=== PATIENT | female | born 1995 | race Caucasian/White ===

== ENCOUNTER 2017-11-30 20:09 | Emergency (ER) | payer MEDICAID ==
[2017-11-30] MEDS ORDERED: ACETAMINOPHEN 325 MG TABLET PO ONE (20:23)
[2017-11-30] MEDS ORDERED: RINGERS SOLUTION,LACTATED 1,000 ML IV ONE (20:23)
--- NOTE | 2017-11-30 20:26 | ER Document Report ---
ED Medical Screen (RME) - General Chief Complaint: Dizziness Stated Complaint: DIZZINESS Time Seen by Provider: 11/30/17 20:18 Notes: RAPID MEDICAL EVALUATION DISCLOSURE I have seen this patient as part of a Rapid Medical Evaluation and, if applicable, placed any initially appropriate orders. The patient will be seen and fully evaluated, including a full history and physical exam, by a provider ( in Main ED or Fast Track) when a room becomes available. 22-year-old female here with complaints of body aches sore throat chest pain palpitations and fever that started earlier today. The symptoms started with some chest pain while she was at work but no shortness of breath cough congestion. She then started to experience some sore throat that felt like "my throat was closing up on me". After that, she started to have body aches and fever. She has not taken anything for the symptoms. She does not know of any specific sick contacts. Immunizations up-to-date. She has not had any dysuria hematuria frequency hesitancy abdominal pain. EXAM Minimal oropharyngeal erythema no tonsillar swelling or exudates Moderately tachycardic high 130s CTAB No abdominal TTP TRAVEL OUTSIDE OF THE [place] IN LAST 30 DAYS: No - Related Data Allergies/Adverse Reactions: No Known Allergies Allergy (Unverified 09/24/15 21:05) Physical Exam - Vital signs Vitals: Temp Pulse Resp BP Pulse Ox 100.6 F H 123 H 20 130/71 H 98 11/30/17 20:15 11/30/17 20:15 11/30/17 20:15 11/30/17 20:15 11/30/17 20:15 Course - Vital Signs Vital signs: Temp Pulse Resp BP Pulse Ox 100.6 F H 123 H 20 130/71 H 98 11/30/17 20:15 11/30/17 20:15 11/30/17 20:15 11/30/17 20:15 11/30/17 20:15
[2017-11-30 21:07] LABS: ABSOLUTE LYMPHOCYTES (AUTO) 1.2 10^3/uL (0.5-4.7); ABSOLUTE MONOCYTES (AUTO) 0.8 10^3/uL (0.1-1.4); BASOPHILS % (AUTO) 0.1 % (0-2); EOSINOPHILS % (AUTO) 0.2 % (0-6); HEMATOCRIT 37.2 % (36.0-47.0); HEMOGLOBIN 12.5 g/dL (12.0-15.5); LYMPHOCYTES % (AUTO) 7.3 % (13-45); MEAN CORPUSCULAR HGB CONC 33.7 g/dL (32.0-36.0); MEAN CORPUSCULAR VOLUME 86 fl (80-97); MONOCYTES % (AUTO) 4.9 % (3-13); PLATELET COUNT 251 10^3/uL (150-450); RED BLOOD COUNT 4.32 10^6/uL (3.72-5.28); RED CELL DISTRIBUTION WIDTH 13.1 % (11.5-14.0); SEGMENTED NEUTROPHILS % (AUTO) 87.5 % (42-78); TOTAL CELLS COUNTED % (AUTO) 100 %
[2017-11-30 21:10] LABS: APPEARANCE,URINE SLIGHTLY-CLOUDY; BILIRUBIN,URINE NEGATIVE (NEGATIVE); COLOR,URINE YELLOW; GLUCOSE, URINE NEGATIVE (NEGATIVE); KETONES,URINE NEGATIVE (NEGATIVE); LEUKOCYTE ESTERASE,URINE NEGATIVE (NEGATIVE); NITRITE,URINE NEGATIVE (NEGATIVE); PROTEIN,URINE NEGATIVE (NEGATIVE); URINE SPECIFIC GRAVITY 1.019; UROBILINOGEN,URINE NEGATIVE mg/dL (<2.0)
--- NOTE | 2017-11-30 21:23 | RADIOLOGY REPORT (SQ) ---
EXAM DESCRIPTION: CHEST 2 VIEWS COMPLETED DATE/TIME: 11/30/2017 9:02 pm REASON FOR STUDY: CP fever; eval pneumonia COMPARISON: None. EXAM PARAMETERS: NUMBER OF VIEWS: two views TECHNIQUE: Digital Frontal and Lateral radiographic views of the chest acquired. RADIATION DOSE: NA LIMITATIONS: none FINDINGS: LUNGS AND PLEURA: No opacities, masses or pneumothorax. No pleural effusion. MEDIASTINUM AND HILAR STRUCTURES: No masses or contour abnormalities. HEART AND VASCULAR STRUCTURES: Heart normal size. No evidence for failure. BONES: No acute findings. HARDWARE: None in the chest. OTHER: No other significant finding. IMPRESSION: NO ACUTE RADIOGRAPHIC FINDING IN THE CHEST. TECHNICAL DOCUMENTATION: JOB ID: [id number] [place]-72 2010 [employer]- All Rights Reserved Reading location - IP/workstation name: [email or web address]
[2017-11-30 21:24] LABS: A TYPE INFLUENZA AG NEGATIVE (NEGATIVE); ALANINE AMINOTRANSFERASE 22 U/L (9-52); ALBUMIN 5.1 g/dL (3.5-5.0); ALKALINE PHOSPHATASE 70 U/L (38-126); ANION GAP 17 (5-19); ASPARTATE AMINO TRANSFERASE 21 U/L (14-36); B INFLUENZA AG NEGATIVE (NEGATIVE); BILIRUBIN,DIRECT 0.3 mg/dL (0.0-0.4); BILIRUBIN,TOTAL 0.6 mg/dL (0.2-1.3); BLOOD UREA NITROGEN 11 mg/dL (7-20); CALCIUM 10.3 mg/dL (8.4-10.2); CARBON DIOXIDE 25 mmol/L (22-30); CHLORIDE 98 mmol/L (98-107); GLUCOSE 106 mg/dL (75-110); LIPASE 92.6 U/L (23-300); POTASSIUM 3.9 mmol/L (3.6-5.0); SODIUM 140.4 mmol/L (137-145); TOTAL PROTEIN 8.4 g/dL (6.3-8.2)
--- NOTE | 2017-11-30 21:26 | ER Document Report ---
ED General - General Chief Complaint: Dizziness Stated Complaint: DIZZINESS Time Seen by Provider: 11/30/17 20:18 TRAVEL OUTSIDE OF THE [place] IN LAST 30 DAYS: No - HPI Notes: 22-year-old female who presents with fever and not feeling well. Patient describes gradual onset throughout the day of body aches, back pain, mild headache, clinical sore throat. Gradual onset, nonradiating. No other modifying factors, no other associated symptoms, no other provocative or palliative factors. She has had no recent travel, no tick bites but did find a "tick in her bed". No rashes. No camping. No international travel. No diarrhea, no vomiting. No photophobia. No neck pain. No neck stiffness. No other modifying factors, no other associated symptoms, no other provocative or palliative factors. No cough - Related Data Allergies/Adverse Reactions: No Known Allergies Allergy (Unverified 09/24/15 21:05) Past Medical History - Social History Smoking Status: Never Smoker Chew tobacco use (# tins/day): No Frequency of alcohol use: None Drug Abuse: None Family History: Reviewed & Not Pertinent Patient has suicidal ideation: No Patient has homicidal ideation: No - Medical History Medical History: Negative Renal/ Medical History: Denies: Hx Peritoneal Dialysis Past Surgical History: Reports: Hx Orthopedic Surgery - right shoulder Review of Systems - Review of Systems Notes: Review of systems as in the history of present illness, otherwise negative. Physical Exam - Vital signs Vitals: Temp Pulse Resp BP Pulse Ox 100.6 F H 123 H 20 130/71 H 98 11/30/17 20:15 11/30/17 20:15 11/30/17 20:15 11/30/17 20:15 11/30/17 20:15 - Notes Notes: General: Well developed . HEENT: Normocephalic, atraumatic. Pupils equal round reactive to light. No JVD. Chest: No trauma. Respiratory: Good air exchange, normal excursion. Cardiac: Regular rhythm. No murmurs or gallops. Abdomen: Soft, benign. Nondistended. Nontender. Back: No asymmetry or gross abnormality. Motor: Grossly normal power and tone. Neurologic: Alert, nonfocal. Cranial nerves II-12 are intact. Sensation intact. Vascular: Well perfused. Normal peripheral pulses. Skin: No petechiae or purpura. Course - Re-evaluation Re-evalutation: 11/30/17 21:25 Well-appearing female the after mentioned symptoms. Note the patient was seen initially by the physician in triage ordered extensive laboratory workup. Patient is febrile, mild to moderately tachycardic. She is otherwise nontoxic and well in appearance. Suspect tachycardia is related to fever will treat accordingly. Patient does not have a focus of infection. At this time, labs and workup are pending. I strongly suspect viral illness, but will err on the side of caution and cover for a tickborne illness if workup is negative. 11/30/17 21:45 Labs reviewed, leukocytosis is noted, remainder labs are unremarkable with the exception of a positive strep screen. Although this may be colonization, only on the side of caution, cover with antibiotics. Discharged home, fever instructions given. - Vital Signs Vital signs: Temp Pulse Resp BP Pulse Ox 100.6 F H 123 H 20 130/71 H 98 11/30/17 20:15 11/30/17 20:15 11/30/17 20:15 11/30/17 20:15 11/30/17 20:15 - Laboratory Result Diagrams: 11/30/17 20:28 11/30/17 20:28 Laboratory results interpreted by me: 11/30/17 11/30/17 11/30/17 20:28 20:28 20:28 WBC 16.0 H Seg Neutrophils % 87.5 H Lymphocytes % 7.3 L Absolute Neutrophils 14.0 H Calcium 10.3 H Total Protein 8.4 H Albumin 5.1 H Urine Blood SMALL H Discharge - Discharge Condition: Stable Disposition: HOME, SELF-CARE Instructions: Strep Throat ([facility]) Prescriptions: Doxycycline Hyclate 100 mg PO BID #20 capsule
[2017-11-30] MEDS ORDERED: DOXYCYCLINE HYCLATE 100 MG TABLET PO ONE (21:44)
[2017-11-30 22:30] VITALS: BP 124/75
== END 2017-11-30 22:38 | disposition home or self-care (01) ==
LOC: ER 20:09
DX: R42 Dizziness and giddiness (principal); M79.1 Myalgia; M54.9 Dorsalgia, unspecified; R51 Headache; R00.2 Palpitations; R00.0 Tachycardia, unspecified
CPT/HCPCS: 99284; 96360; 36415; 87040; 87880; 83690; 85025; 81025; 80053; 81001; 83605; 87804; 71046; J3490 ×2; J7120

== ENCOUNTER 2018-01-04 07:59 | Emergency (ER) | payer BC, MEDICAID ==
--- NOTE | 2018-01-04 08:17 | ER Document Report ---
ED GI/ - General Chief Complaint: Vaginal Bleeding Stated Complaint: VAGINAL BLEEDING Time Seen by Provider: 01/04/18 08:15 Mode of Arrival: Ambulatory Information source: Patient Notes: 22-year-old stopped Depakote shots over a year ago. She has daily vaginal bleeding waxing and waning for 4 months. She recently moved here has not seen [employer]. No history of ovarian cysts, endometriosis, STDs, thyroid disease, or abnormal Pap smears. No pelvic pain. Abstinent. TRAVEL OUTSIDE OF THE [place] IN LAST 30 DAYS: No - Related Data Allergies/Adverse Reactions: No Known Allergies Allergy (Unverified 09/24/15 21:05) Past Medical History - General Information source: Patient - Social History Smoking Status: Never Smoker Frequency of alcohol use: None Drug Abuse: None Lives with: Family - mom Family History: Reviewed & Not Pertinent - Medical History Medical History: Negative Renal/ Medical History: Denies: Hx Peritoneal Dialysis Past Surgical History: Reports: Hx Orthopedic Surgery - right shoulder Review of Systems - Review of Systems Constitutional: No symptoms reported EENT: No symptoms reported Cardiovascular: No symptoms reported Respiratory: No symptoms reported Gastrointestinal: No symptoms reported Genitourinary: No symptoms reported Female Genitourinary: See HPI Musculoskeletal: No symptoms reported Skin: No symptoms reported Hematologic/Lymphatic: No symptoms reported Neurological/Psychological: No symptoms reported Physical Exam - Vital signs Vitals: Temp Pulse Resp BP Pulse Ox 98.8 F 78 18 124/80 98 01/04/18 08:08 01/04/18 08:08 01/04/18 08:08 01/04/18 08:08 01/04/18 08:08 Interpretation: Normal - General General appearance: Appears well, Alert - HEENT Head: Normocephalic, Atraumatic Eyes: Normal Conjunctiva: Normal Pupils: PERRL Neck: Supple. No: Lymphadenopathy - Respiratory Respiratory status: No respiratory distress Chest status: Nontender Breath sounds: Normal Chest palpation: Normal - Cardiovascular Rhythm: Regular Heart sounds: Normal auscultation Murmur: No - Abdominal Inspection: Normal Distension: No distension Bowel sounds: Normal Tenderness: Nontender Organomegaly: No organomegaly - Genitourinary External exam: Normal Speculum exam: Cervix closed. No: Vaginal discharge, Lesions Vaginal bleeding: None - minimal old mucous blood at os Bimanuel exam: No: Cervical motion tender - Back Back: Normal, Nontender. No: CVA tenderness - Extremities General upper extremity: Normal inspection, Nontender, Normal color, Normal ROM , Normal temperature General lower extremity: Normal inspection, Nontender, Normal color, Normal ROM , Normal temperature, Normal weight bearing. No: Raphael's sign - Neurological Neuro grossly intact: Yes Cognition: Normal Orientation: AAOx4 [place] Coma Scale Eye Opening: Spontaneous [place] Coma Scale Verbal: Oriented [place] Coma Scale Motor: Obeys Commands Zuleyma Coma Scale Total: 15 Speech: Normal Motor strength normal: LUE, RUE, LLE, RLE Sensory: Normal - Psychological Associated symptoms: Normal affect, Normal mood - Skin Skin Temperature: Warm Skin Moisture: Dry Skin Color: Normal Skin irregularity: negative: Rash Course - Vital Signs Vital signs: Temp Pulse Resp BP Pulse Ox 98.8 F 78 18 124/80 98 01/04/18 08:08 01/04/18 08:08 01/04/18 08:08 01/04/18 08:08 01/04/18 08:08 - Laboratory Result Diagrams: 01/04/18 08:35 Laboratory results interpreted by me: 01/04/18 08:35 Hct 35.8 L Discharge - Discharge Clinical Impression: Vaginal bleeding Condition: Good Disposition: HOME, SELF-CARE Instructions: Vaginal Bleeding ([facility]), Provera ([facility]) Additional Instructions: see obgyn for the chronic vaginal bleeding. we will try progesterone tx to see if it stabalized the uterine lining and hormones. to er if dizzy, pain, increased bleeding Prescriptions: Medroxyprogesterone Acet [Provera 10 Mg Tablet] 10 mg PO DAILY #10 tablet Forms: Return to Work Referrals: GLADYS VALADEZ MD [ACTIVE STAFF] - Follow up as needed (call and scedule appt)
[2018-01-04 09:00] LABS: ABSOLUTE EOSINOPHILS # (AUTO) 0.2 10^3/uL (0.0-0.6); ABSOLUTE MONOCYTES (AUTO) 0.5 10^3/uL (0.1-1.4); ABSOLUTE NEUT (AUTO) 4.9 10^3/uL (1.7-8.2); BASOPHILS % (AUTO) 0.5 % (0-2); EOSINOPHILS % (AUTO) 2.1 % (0-6); HEMATOCRIT 35.8 % (36.0-47.0); HEMOGLOBIN 12.3 g/dL (12.0-15.5); LYMPHOCYTES % (AUTO) 25.9 % (13-45); MEAN CORPUSCULAR HEMOGLOBIN 29.4 pg (27.0-33.4); MEAN CORPUSCULAR HGB CONC 34.4 g/dL (32.0-36.0); MEAN CORPUSCULAR VOLUME 85 fl (80-97); MONOCYTES % (AUTO) 6.1 % (3-13); PLATELET COUNT 264 10^3/uL (150-450); RED BLOOD COUNT 4.19 10^6/uL (3.72-5.28); SEGMENTED NEUTROPHILS % (AUTO) 65.4 % (42-78); TOTAL CELLS COUNTED % (AUTO) 100 %; WHITE BLOOD COUNT 7.6 10^3/uL (4.0-10.5)
[2018-01-04 09:32] LABS: BACTERIA (WET MOUNT) 3+ BACTERIA SEEN; RBCS (WET MOUNT) 2+ RBCS SEEN; T.VAGINALIS (WET MOUNT) NO TRICHOMONAS SEEN; WBCS (WET MOUNT) FEW WBCS SEEN; YEAST (WET MOUNT) NO YEAST SEEN
[2018-01-04 10:36] VITALS: BP 121/85
[2018-01-04 10:57] LABS: CHLAM PCR NOT DETECTED (NOT DETECT); GON PCR NOT DETECTED (NOT DETECT)
== END 2018-01-04 10:35 | disposition home or self-care (01) ==
LOC: ER 07:59
DX: N93.8 Other specified abnormal uterine and vaginal bleeding (principal)
CPT/HCPCS: 36415; 84443; 84703; 85025; 87210; 87491; 87591; 99284